=== PATIENT | male | born 1995 | race Caucasian/White ===

== ENCOUNTER 2022-01-13 13:25 | Emergency (ER) | payer BC, SELFPAY ==
[2022-01-13 13:26] VITALS: BP 161/104; PULSE 98; RESP 16; TEMP 36.5; O2SAT 97; BMI 35.7
[2022-01-13 14:22] LABS: Absolute Lymphocyte Count 1.64 X10^3/uL (0.83-4.51); Absolute Neutrophil Count 5.8 X10^3/uL (2.0-7.7); Basophil# 0.07 X10^3/uL; Basophil% 0.8 % (0-1); Eosinophil# 0.21 X10^3/uL; Eosinophils% 2.5 % (0-5); Hematocrit 47.9 % (40-54); Hemoglobin 16.4 g/dL (13.0-16.5); Lymphocyte # 1.64 X10^3/ul (0.83-4.51); Lymphocyte % 19.5 % (19-41); Mean Corp Hgb Conc 34.2 g/dL (32-36); Mean Corpuscular Hgb 29.4 pg (27.0-32.0); Mean Corpuscular Volume 85.8 fL (80-94); Mean Platelet Vol. 9.9 fl (6.2-12.0); Monocyte# 0.66 X10^3/uL; Monocyte% 7.9 % (0-10); NRBC Flagged by Analyzer 0 % (0-5); Neutrophil % 69.1 % (47-70); Platelet Count 314 K/mm3 (150-450); RBC Distribution Width CV 13.9 % (11.6-14.6); RBC Distribution Width SD 44.2 fl (35.1-43.9); Red Blood Count 5.58 M/mm3 (4.6-6.2); White Blood Count 8.4 K/mm3 (4.4-11.0)
--- NOTE | 2022-01-13 14:28 | CT_ITS ---
INDICATION: left sided abed pain EXAMINATION: CT ABDOMEN AND PELVIS WITH CONTRAST - CT Abdomen And Pelvis W/ Contrast Injection TECHNIQUE: Helically acquired images were obtained of the abdomen and pelvis following IV contrast. A radiation dose optimization technique was used for this scan. IV Contrast dosage and agent: 100 mL of [id number]. Oral contrast: None. COMPARISON: None. FINDINGS: LOWER CHEST: Lung bases are clear. No cardiomegaly or pericardial effusion. LIVER: The liver demonstrates homogeneous echogenicity with no evidence of well-defined masses, a 2.7 cm area of for low attenuation suggestive of fatty sparing is visualized in the anterior medial right lobe. No evidence of intrahepatic biliary dilatation is seen. GALLBLADDER AND BILIARY TREE: No calcified gallstones, focal 1.4 cm area of slightly increased attenuation visualized in the neck of the gallbladder , this could represent a noncalcified gallstone. No gallbladder distension or wall edema. No intra- or extrahepatic biliary ductal dilation. PANCREAS: No focal cystic or solid mass. SPLEEN: Normal size without focal cystic or solid mass. ADRENAL GLANDS: No nodules. KIDNEYS AND URETERS: Normal renal size and position. No hydronephrosis. PERITONEUM: No ascites or free air. No other fluid collection. BOWEL: Small type I hiatus hernia is seen. No evidence of acute appendicitis. No stomach or bowel distension. No focal inflammatory change. A focal area of increased attenuation is visualized layering within the proximal duodenum, of unknown clinical significance. Scattered stool visualized in the large bowel. LYMPH NODES: Bilateral inguinal lymphadenopathy is seen. VESSELS: Aorta is non-dilated. URINARY BLADDER: Unremarkable. REPRODUCTIVE ORGANS: No pelvic masses. ABDOMINAL WALL: No discrete abdominal or pelvic wall hernia. BONES: No lytic or blastic abnormality. CT/Abdomen/Pelvis W IV Cont ONLY IMPRESSION: Small type I hiatus hernia and clinical correlation for gastroesophageal reflux disease. Abundance of stool in the large bowel. No evidence of acute abdominal pathology is seen. Electronically Signed: Alejandro Damon MD at 15:41 EDT Reading Location ID and State: [facility] / [place] Tel , Service support ,
--- NOTE | 2022-01-13 14:29 | ED.VIS.GI ---
HPI HPI - GI History of Present Illness Chief Complaint: Abd Pain Informant: patient Abdominal Pain/Flank Pain Onset: Today Context: - (Awoke with discomfort, has gradually worsened throughout the day) Timing: Continuous Quality: Aching Location: LUQ and Left Flank Current Severity: Moderate Maximum Severity: Moderate Worsened by: Nothing; Not Worsened By Food Relieved by: Nothing Nausea/Vomiting/Emesis GI Symptom: Negative for Nausea or Vomiting Diarrhea/Melena/Hematochezia GI Symptom: Negative for Diarrhea, Melena or Hematochezia Associated Symptoms Associated Symptoms: Negative for Dysuria, Frequency, Hematuria or Urgency Narrative Narrative: Patient having worse abdominal pain than he is used to today. He is has had intermittent abdominal pain, was treated as a stomach ulcer, he is not sure what medication he is on but thinks he may be on omeprazole, was a couple months ago and has been better since he has been on that medicine. He ate this morning, it did not seem to make the pain worse. Nonpleuritic. No nausea or vomiting or urinary symptoms. No fevers or chills. No recent cough or shortness of breath. He has not tried anything this morning for it yet. [facility] Medical History Abdominal pain Abdominal pain Home Medications docusate sodium 100 mg capsule (DOK) 100 mg PO BID PRN PRN Constipation ##10 03/05/14 [Rx Last Taken Unknown] hydrocodone-acetaminophen 5-325mg 5mg-325mg 1 - 2 tab PO Q6H PRN PRN Pain ##60 03/05/14 [Rx Last Taken Unknown] promethazine 25 mg tablet 25 mg PO Q4H PRN PRN Nausea ##10 03/05/14 [Rx Last Taken Unknown] dicyclomine 10 mg capsule 20 mg PO Q8H PRN PRN abdominal discomfort #30 CAPSULES 01/13/22 [Rx Last Taken Unknown] Allergy/AdvReac Type Severity Reaction Status Date / Time No Known Allergies Allergy Verified 01/13/22 13:29 Family History no significant family his Social History Smoking Status: Never smoker ROS ROS ED Constitutional Constitutional ED: Denies chills or fever(s) Eyes Eyes: Denies change in vision or diplopia ENT ENT ED: Denies rhinorrhea or sore throat Cardiovascular Cardiovascular: Denies chest pain or palpitations Respiratory/Chest Respiratory/Chest: Denies cough or dyspnea Gastrointestinal Gastrointestinal: Reports abdominal pain; Denies diarrhea, nausea or vomiting Genitourinary Genitourinary ED: Reports flank pain; Denies dysuria or hematuria Musculoskeletal Musculoskeletal: Denies back pain or neck pain Integumentary Denies abscess or rash Neurologic Neurologic: Denies headache(s), paresthesias or weakness Psychiatric Psychiatric: Denies anxiety or suicidal thoughts EXAM Physical Exam Const Vital Signs: 01/13/22 13:26 01/13/22 16:24 Temperature 97.7 F L Temperature Source Temporal Pulse Rate 98 80 Respiratory Rate 16 16 Blood Pressure 161/104 H 145/73 H Blood Pressure Mean 123 97 Pulse Ox 97 97 Oxygen Delivery Method Room Air Room Air Positive well nourished and well developed General Appearance ED: well developed and NAD HEENT Reports moist mucous membranes normocephalic and atraumatic Eyes PERRL and EOMs intact bilaterally Neck full ROM and supple Resp normal respiratory effort and clear to auscultation bilaterally Cardio regular rate, regular rhythm and no murmurs GI non-distended GI Narrative: Tender mildly left upper quadrant, more so in the left lower quadrant, but tender throughout the left side. No guarding or rebound tenderness. No pulsatile mass palpable. Auscultation: normoactive bowel sounds Palpation: soft Back/Spine no CVA tenderness General Back: other FROM Extremity normal to inspection General Extremety ED: Negative for edema, pulses abnormal or tenderness General Extremity: Negative for edema or pulses abnormal Neuro oriented x3, CN's II-XII intact bilaterally and no sensory deficits noted Sensorium / Orientation: awake and alert Motor Exam: strength 5/5 throughout Skin no rashes or lesions noted and no wounds MDM MDM MDM Narrative Medical decision making narrative: Labs unremarkable, patient was CT that, it shows a small hiatal hernia for which she suggest that he is already on some type of acid reducing medication for, in addition to an abundance of stool in the colon which is not necessarily pathologic, however could be related to his pain if he is having colonic spasms and needs to have a bowel movement. Will prescribe him dicyclomine to use as needed, and recommend close outpatient follow-up he is comfortable with that plan. Lab Data Attestation: I reviewed the patient's lab results. Labs: Laboratory Results - last 24 hr 01/13/22 01/13/22 13:50 13:50 WBC 8.4 RBC 5.58 Hgb 16.4 Hct 47.9 MCV 85.8 MCH 29.4 MCHC 34.2 RDW Std Deviation 44.2 H RDW Coeff of Gee 13.9 Plt Count 314 MPV 9.9 Immature Gran % (Auto) 0.200 Neut % (Auto) 69.1 Lymph % (Auto) 19.5 [place] % (Auto) 7.9 Eos % (Auto) 2.5 Baso % (Auto) 0.8 Absolute Neuts (auto) 5.8 Absolute Lymphs (auto) 1.64 Nucleated RBC % 0 Sodium 140 Potassium 3.9 Chloride 107 Carbon Dioxide 28.0 Anion Gap 5 BUN 10 Creatinine 1.01 Estim Creat Clear Calc 109.11 Est GFR (MDRD) Af Amer 116 Est GFR (MDRD) Non-Af 96 BUN/Creatinine Ratio 9.9 L Glucose 103 Calcium 9.4 Radiography Diagnostic Testing: Clinical Impression(s) from Imaging Studies Abdomen/Pelvis CT 01/13/22 14:28 IMPRESSION: Small type I hiatus hernia and clinical correlation for gastroesophageal reflux disease. Abundance of stool in the large bowel. No evidence of acute abdominal pathology is seen. Electronically Signed: Alejandro Damon MD at 15:41 EDT Reading Location ID and State: [facility] / [place] Tel , Service support , Discharge Plan Triage Chief Complaint: Abd Pain ED Provider: Dm Lee Dx/Rx/DC Orders Clinical Impression: Left sided abdominal pain, Hernia, hiatal Instructions: Abdominal Pain, ED Hiatal Hernia Prescriptions: New dicyclomine 10 mg capsule 20 mg PO Q8H PRN PRN (Reason: abdominal discomfort) Qty: 30 0RF No Action hydrocodone-acetaminophen 1 TABLET tablet 1 - 2 tab PO Q6H PRN PRN (Reason: Pain) Qty: 60 1RF promethazine 25 MG tablet 25 mg PO Q4H PRN PRN (Reason: Nausea) Qty: 10 0RF docusate sodium [DOK] 100 MG capsule 100 mg PO BID PRN PRN (Reason: Constipation) Qty: 10 0RF Primary Care Provider: Tuan Chowdhury Referrals: Tuan Chowdhury DO [Primary Care Provider] - 3-5 Days if not improving Disposition Disposition: Home, Self Care
[2022-01-13] MEDS: Mag Hydrox/Al Hydrox/Simeth 30 ML UDC PO (15:07)
[2022-01-13 16:00] LABS: Anion Gap 5 (5-15); BUN 10 mg/dL (7-18); BUN/Creat Ratio 9.9 RATIO (10-20); Calcium,Total 9.4 mg/dL (8.5-10.1); Chloride 107 mmol/L (98-107); Creatinine, Serum 1.01 mg/dL (0.70-1.30); EST Glomerular Filtration Rate 96 mL/min (>60); Est Glom Filt Rate - Afr Amer 116 mL/min (>60); Estimated Creatinine Clearance 109.11 ml/min; Glucose 103 mg/dL (74-106); Potassium 3.9 mmol/L (3.5-5.1); Sodium Level 140 mmol/L (136-145)
[2022-01-13 16:24] VITALS: BP 145/73; PULSE 80; RESP 16; O2SAT 97
[2022-01-13 16:43] VITALS: PULSE 86; RESP 15; O2SAT 98
== END 2022-01-13 16:44 | disposition home or self-care (01) ==
PROVIDERS: Emergency Provider Emergency Medicine; PCP Student in an Organized Health Care Education/Training Program; Visit Provider Emergency Medicine
DX: R10.9 Unspecified abdominal pain (principal); K44.9 Diaphragmatic hernia without obstruction or gangrene
CPT/HCPCS: 74177; 80048; 85025; 99283; J7040; Q9967; A4216

== ENCOUNTER 2022-08-14 05:23 | Emergency (ER) | payer BC, SELFPAY ==
[2022-08-14 05:24] VITALS: BP 171/89; PULSE 78; RESP 15; TEMP 36.6; O2SAT 97; BMI 35.4
--- NOTE | 2022-08-14 05:40 | ED.VIS.GI ---
HPI HPI - GI History of Present Illness Chief Complaint: Abd Pain Informant: patient Narrative Narrative: Patient presents with right upper quadrant pain he is afraid it is his gallbladder. At first the when I asked if he has had this before he said he may have had something back in January. But the more I talk to him I find out he is having pain in the right upper quadrant actually multiple times a day almost every day. He has seen his primary physician for this. They ordered an ultrasound he had an ultrasound on Sunday at [facility]. The pain came back again this morning but was a little bit worse than normal but it is in the same spot. He does not have chest pain or dyspnea. No posterior back pain. No history of kidney stones. No hematuria. He has no prior history of any intra-abdominal surgery. Past medical history includes anxiety and GERD Patient's meds include meds for anxiety depression he does not know the name of them. He also is on what sounds like a PPI. No known allergies No prior intra-abdominal surgeries PFSH PFS Medical History Abdominal pain Abdominal pain Home Medications dicyclomine 10 mg capsule 20 mg PO TIDAC #20 CAPSULES 08/14/22 [Rx Last Taken Unknown] hydrocodone-acetaminophen 5-325mg 5mg-325mg 1 tab PO Q6H PRN PRN Pain 3 days #10 TABLETS 08/14/22 [Rx Last Taken Unknown] hydroxyzine HCl 25 mg tablet mg 08/14/22 [History Last Taken Unknown] pantoprazole 40 mg tablet,delayed release mg PO 08/14/22 [History Last Taken Unknown] sildenafil 50 mg tablet mg 08/14/22 [History Last Taken Unknown] sucralfate 1 gram tablet 08/14/22 [History Last Taken Unknown] trazodone 50 mg tablet mg 08/14/22 [History Last Taken Unknown] Allergy/AdvReac Type Severity Reaction Status Date / Time No Known Allergies Allergy Verified 08/14/22 05:28 Social History Smoking Status: Never smoker ROS ROS ED Constitutional Constitutional ED: Denies fever(s) ENT ENT ED: Denies rhinorrhea or sore throat Cardiovascular Cardiovascular: Denies chest pain or palpitations Respiratory/Chest Respiratory/Chest: Denies cough or dyspnea Gastrointestinal Gastrointestinal: Reports abdominal pain, diarrhea, nausea and vomiting; Denies constipation or melena Genitourinary Genitourinary ED: Denies hematuria Musculoskeletal Musculoskeletal: Denies back pain or myalgias Integumentary Denies rash Neurologic Neurologic: Denies paresthesias or weakness Psychiatric Psychiatric: Reports anxiety Endocrine Endocrinology: Denies polydipsia or polyuria Hematologic/Lymphatic Hematologic/Lymphatic: Denies lymphadenopathy Allergic/Immunologic Allergic/Immunologic ED: Denies urticaria EXAM Physical Exam Narrative Exam Narrative: Patient awake alert sitting on bed. He looks little uncomfortable but not toxic. HEENT shows normal moist mucous membranes Eyes show no icterus Lungs are clear bilaterally. Heart is regular. No tachycardia. Abdomen is soft normal bowel sounds. He does have tenderness primarily in the right upper quadrant. He really is not tender epigastric or other areas. He has slight increased pain with a deep breath/Cook sign but it is just mild. shows no CVA or suprapubic tenderness Extremities show no edema or cords Skin shows no icterus pallor or diaphoresis. Const Vital Signs: 08/14/22 05:24 Temperature 97.9 F Temperature Source Temporal Pulse Rate 78 Respiratory Rate 15 Blood Pressure 171/89 H Blood Pressure Mean 116 Pulse Ox 97 Oxygen Delivery Method Room Air MDM MDM MDM Narrative Medical decision making narrative: We did contact [facility]. They are going to check to see if his ultrasound was read. They are not sure if it has yet been read. Patient CBC shows normal white count hemoglobin and platelets. Patient's electrolytes show minimally low potassium at 3.4 and glucose of 108 otherwise normal. Patient's liver function test are normal Lipase is normal at 229 Patient's recheck. He had originally gotten a little bit better with meds but now the pain is getting worse. All of it is in right upper quadrant. There is no tenderness elsewhere. We have been unable to obtain ultrasound from the other facility. They were not even sure if it was read. I checked again and we have no results. This patient has been having intermittent right upper quadrant pain is getting worse and constant now. I will repeat the ultrasound here. Certainly if it shows an acute abnormality he may need to come in for this. But if the ultrasound shows no acute process I think he would be appropriate for outpatient follow-up. I was able to get the ultrasound done here. It is not showing any stones pericholecystic fluid inflammatory changes etc. I talk with the patient. He has been taking something for acid but he is just taking it occasionally. I explained that he should take this every single day. He can use his pantoprazole or he can use Nexium or Prilosec [id number]. He should follow-up with his private physician. I will also refer him to gastroenterology. I explained this could also be ulcer disease. He may also end up needing an outpatient HIDA scan. I will get him some Bentyl to see if this helps. I will write for a few Vicodin. I did research his online prescribing report that shows no controlled substances at all in the last 2 years. Repeat exam shows really no tenderness. He states he still has some discomfort in the right upper quadrant but it is better and there is no real tenderness or rebound. Bowel sounds are normal. Lab Data Attestation: I reviewed the patient's lab results. Labs: Laboratory Results - last 24 hr 08/14/22 08/14/22 05:49 05:49 WBC 9.9 RBC 5.25 Hgb 15.5 Hct 45.8 MCV 87.2 MCH 29.5 MCHC 33.8 RDW Std Deviation 40.1 RDW Coeff of Gee 12.5 Plt Count 308 MPV 10.3 Immature Gran % (Auto) 0.400 Neut % (Auto) 63.8 Lymph % (Auto) 21.9 [place] % (Auto) 9.0 Eos % (Auto) 4.3 Baso % (Auto) 0.6 Absolute Neuts (auto) 6.3 Absolute Lymphs (auto) 2.17 Nucleated RBC % 0 Sodium 140 Potassium 3.4 L Chloride 104 Carbon Dioxide 28.0 Anion Gap 8 BUN 12 Creatinine 1.01 Estim Creat Clear Calc 119.08 Est GFR (MDRD) Af Amer 115 Est GFR (MDRD) Non-Af 95 BUN/Creatinine Ratio 11.9 Glucose 108 H Calcium 8.8 Total Bilirubin 0.40 AST 19 ALT 25 Alkaline Phosphatase 68 Total Protein 7.0 Albumin 3.8 Globulin 3.2 Albumin/Globulin Ratio 1.2 Lipase 229 Radiography Diagnostic Testing: Clinical Impression(s) from Imaging Studies Gallbladder Ultrasound 08/14/22 06:36 IMPRESSION: Enlarged fatty liver. Electronically Signed: Tuan Finley MD at 7:30 EST , Discharge Plan Triage Chief Complaint: Abd Pain ED Provider: Ziyad Frias Dx/Rx/DC Orders Clinical Impression: Abdominal pain, acute, right upper quadrant, Biliary colic Instructions: ED Abdominal Pain Unkn Cause Male... Prescriptions: New hydrocodone-acetaminophen [hydrocodone-acetaminophen] 5-325 mg tablet 1 tab PO Q6H PRN PRN (Reason: Pain) 3 Days Qty: 10 0RF dicyclomine 10 mg capsule 20 mg PO TIDAC Qty: 20 0RF No Action trazodone 50 mg tablet Label Comments: START WITH A 1/2 TABLET FOR 7 DAYS THEN INCREASE TO 1 TAB AT BEDTIME sildenafil 50 mg tablet sucralfate 1 gram tablet pantoprazole 40 mg tablet,delayed release (DR/EC) PO Label Comments: TAKE 1 TABLET BY MOUTH EVERY DAY BEFORE MEALS FOR 90 DAYS hydroxyzine HCl 25 mg tablet Label Comments: TAKE 1/2 TABLET BY MOUTH EVERY DAY FOR 30 DAYS NEEDED FOR ANXIETY Primary Care Provider: Tuan Chowdhury Referrals: Tuan Chowdhury DO [Primary Care Provider] - As soon as possible Friend,DO Bradley [Med Staff - Active Staff] - As soon as possible Disposition Disposition: Home, Self Care
[2022-08-14] MEDS: Ketorolac 15 MG/ML Vial IV (05:45)
[2022-08-14] MEDS: 0.9% Normal Saline 1,000 ML 1000 ML IV (05:45)
[2022-08-14] MEDS: Ondansetron 4 MG/2 ML Vial IV (05:46)
[2022-08-14 06:07] LABS: Absolute Lymphocyte Count 2.17 X10^3/uL (0.83-4.51); Absolute Neutrophil Count 6.3 X10^3/uL (2.0-7.7); Basophil# 0.06 X10^3/uL; Basophil% 0.6 % (0-1); Eosinophil# 0.43 X10^3/uL; Eosinophils% 4.3 % (0-5); Hematocrit 45.8 % (40-54); Hemoglobin 15.5 g/dL (13.0-16.5); Lymphocyte # 2.17 X10^3/ul (0.83-4.51); Lymphocyte % 21.9 % (19-41); Mean Corp Hgb Conc 33.8 g/dL (32-36); Mean Corpuscular Hgb 29.5 pg (27.0-32.0); Mean Corpuscular Volume 87.2 fL (80-94); Mean Platelet Vol. 10.3 fl (6.2-12.0); Monocyte# 0.89 X10^3/uL; NRBC Flagged by Analyzer 0 % (0-5); Neutrophil # 6.32 X10^3/uL (2.7-7.7); Neutrophil % 63.8 % (47-70); Platelet Count 308 K/mm3 (150-450); RBC Distribution Width CV 12.5 % (11.6-14.6); RBC Distribution Width SD 40.1 fl (35.1-43.9); Red Blood Count 5.25 M/mm3 (4.6-6.2); White Blood Count 9.9 K/mm3 (4.4-11.0)
[2022-08-14 06:27] LABS: ALB/GLOB Ratio 1.2 RATIO (0.9-2.4); AST(SGOT) 19 U/L (15-37); Alanine Aminotransfer ALT/SGPT 25 U/L (16-61); Albumin, Serum 3.8 g/dL (3.2-5.0); Alkaline Phosphatase 68 U/L (45-117); Anion Gap 8 (5-15); BUN 12 mg/dL (7-18); BUN/Creat Ratio 11.9 RATIO (10-20); Calcium,Total 8.8 mg/dL (8.5-10.1); Chloride 104 mmol/L (98-107); Creatinine, Serum 1.01 mg/dL (0.70-1.30); EST Glomerular Filtration Rate 95 mL/min (>60); Est Glom Filt Rate - Afr Amer 115 mL/min (>60); Estimated Creatinine Clearance 119.08 ml/min; Globulin 3.2 g/dL (2.2-4.2); Glucose 108 mg/dL (74-106); Lipase 229 U/L (73-393); Potassium 3.4 mmol/L (3.5-5.1); Sodium Level 140 mmol/L (136-145)
--- NOTE | 2022-08-14 06:36 | US_ITS ---
EXAM: US ABDOMEN LIMITED, RIGHT UPPER QUADRANT CLINICAL INDICATION: pain TECHNIQUE: Real-time ultrasound of the right upper quadrant with image documentation. This report was created using [employer] report generation technology. COMPARISON: None. FINDINGS: LIVER: The liver measures 18.7 cm. Increased echogenicity of the liver. No intrahepatic biliary ductal dilation. GALLBLADDER: Unremarkable. No shadowing gallstone. No gallbladder wall thickening is demonstrated. No pericholecystic fluid. Negative sonographic Cook''s sign. COMMON BILE DUCT: Unremarkable as visualized. The proximal common bile duct is within normal limits for the patient''s age. PANCREAS: Unremarkable as visualized. No focal abnormality is demonstrated in the pancreas. No pancreatic ductal dilatation. RIGHT KIDNEY: Unremarkable. There is no hydronephrosis. No shadowing calculus. No focal lesion or perinephric collection is demonstrated. US/Gallbladder IMPRESSION: Enlarged fatty liver. Electronically Signed: Tuan Finley MD at 7:30 EST ,
[2022-08-14] MEDS: Morphine 4 MG/ML Syringe IV (06:43)
[2022-08-14 08:08] VITALS: BP 149/81; PULSE 69; RESP 16; O2SAT 99
--- NOTE | 2022-08-14 08:18 | ED.RN ---
PATIENT HAS RIDE OUT OF THE FACILITY.
== END 2022-08-14 08:14 | disposition home or self-care (01) ==
PROVIDERS: Emergency Provider Emergency Medicine; PCP Student in an Organized Health Care Education/Training Program; Visit Provider Emergency Medicine
DX: K80.50 Calculus of bile duct without cholangitis or cholecystitis without obstruction (principal); R10.11 Right upper quadrant pain
CPT/HCPCS: 76705; 80053; 83690; 85025; 96361; 96374; 96375; 99282; J7030; A4216; J2405

== ENCOUNTER → 2022-08-30 | Outpatient (CLI) | payer BC, SELFPAY ==
--- NOTE | 2022-08-30 09:23 | NM_ITS ---
CLINICAL: 27-year-old male with history of postprandial epigastric pain. RADIONUCLIDE HEPATOBILIARY SCINTIGRAPHY COMPARISON: Gallbladder ultrasound report 08/14/2022 FINDINGS: Following the intravenous administration of 6.0 mCi of 99m Tc Mebrofenin, hepatobiliary images reveal: 1. Relatively prompt and homogeneous radiopharmaceutical concentration is noted by a normal sized liver. No parenchymal defects are identified. 2. Gallbladder activity is identified at 15 minutes post radiopharmaceutical administration. 3. Small intestinal tract is observed at 45 minutes following tracer injection. 4. Washout of the radiopharmaceutical by the hepatic parenchyma appears qualitatively normal. Cholecystokinin (0.02 ug/kg) was administered intravenously over a 30-minute period. The post CCK gallbladder ejection fraction calculated at 20 minutes following Cholecystokinin administration was noted to be 38.0 % (normal greater than 35%). During 30 minutes of post CCK imaging, there is no scintigraphic evidence of reflux of the radiotracer into the common hepatic duct or refilling of the gallbladder. There is evidence of post CCK duodenal-gastric reflux. NM/Hepatobilliary Img w/Pharm Int IMPRESSION: 1. A gallbladder ejection fraction calculated to be greater than 35% following the administration of Cholecystokinin makes the probability of functional hepatobiliary disease (gallbladder and/or sphincter of Oddi dyskinesia) and/or organic hepatobiliary disease (chronic acalculous cholecystitis and/or cystic duct syndrome) to be low. (Elin Foster et al, Journal of Nuclear Medicine 32:1695, 1991). 2. There is scintigraphic evidence of post cholecystokinin duodenal-gastric reflux. Electronically Signed: Kyle Bhakta, at 23:46 EDT ,
== END | disposition home or self-care (01) ==
LOC: NM 09:22
PROVIDERS: PCP Student in an Organized Health Care Education/Training Program; Referring Provider Nurse Practitioner Adult Health; Visit Provider Nurse Practitioner Adult Health
DX: R10.11 Right upper quadrant pain (principal); K21.9 Gastro-esophageal reflux disease without esophagitis
CPT/HCPCS: 78227; A9537; J2805

== ENCOUNTER 2022-10-12 11:40 | Day surgery (SDC) | payer BC, SELFPAY ==
[2022-10-12] VITALS (7 sets, daily range): BP systolic 118–145; BP diastolic 65–88; PULSE 80–94; RESP 16–18; TEMP 36.3–36.7; O2SAT 92–99; BMI 33.8
[2022-10-12] MEDS: Lactated Ringers 1,000 ML 15 ML IV (12:11)
--- NOTE | 2022-10-12 12:45 | EGD_PTH ---
PATIENT: KELVIN GARCIA LOC: EN U#:[id number] AGE/SX: 27/M ROOM: RE10/12/[address]: Dr. Bradley Arriaga DO : 1995 BED: DIS: 10/12/2022 SPEC #: [id number] RECD: 10/12/22 14:53 STATUS: GLYNN LINDA #: [id number] MAYLIN: 10/12/22 12:[address]: Bradley Arriaga DEPT: SURGICAL PATHOLOGY RECD BY: Tejal Renee ENTERED: 10/13/22 12:32 SP TYPE: EGD BIOPSY OT DR: Dr. Tuan Chowdhury DO Tissues: Esophagus, NOS Procedures: Special Stain Group I Surgery Specimen Level IV GMS Stain (control) HEADER OPERATION: EGD ([facility] [place]) PRE-OP DIAGNOSIS: RUQ pain, GERD TISSUE SUBMITTED: Distal esophagus biopsy MICROSCOPIC DIAGNOSIS Distal esophagus, biopsy: Fragments of squamous mucosa with focal ulceration, acute and chronic inflammation and granulation tissue reaction. Changes consistent with eosinophilic esophagitis. See comment. MIGUEL:wesley 10/16/2022 COMMENT Increased number of eosinophils (>20 per high power field) are noted consistent with eosinophilic esophagitis. Special stain for fungi is negative for organisms; matched control is appropriate. MICROSCOPIC DESCRIPTION Slides are reviewed. GROSS DESCRIPTION Received in fixative is one container labeled with the patient's name and designated distal esophagus biopsy. The specimen consists of multiple irregular fragments of light cervantes soft tissue that in aggregate measure 0.6 x 0.2 x 0.1 cm. The specimen is totally submitted in one cassette. / MIGUEL:wesley 10/13/2022 TC:2 [facility]: [id number]
--- NOTE | 2022-10-12 12:57 | PCM.HP.BLA ---
History and Physical Date of Admission: 10/12/22 27 M who presents to the office today for abdominal pain. RUQ pain started 3 wks ago after eating [employer], then worse on 08/14/22, had nausea and vomiting with blood-tinged emesis, taking ondansetron which helps with n/v but still has RUQ pain. Pain is worse with larger meals, worse with greasy or fried foods. 2 ED visits on 08/14/22 for this. 08/14/22 ED at [facility]--RUQ pain; normal liver function tests, normal lipase, K+3.3, normal cbc; RUQ US: enlarged (18.7 cm) fatty liver, normal gallbladder 08/14/22 ED at [facility]--RUQ pain and blood tinged emesis; cbc/cmp/lipase unremarkable; RUQ US normal GB; CT abd neg Long hx acid reflux. Choking on food for the past 3 mos. Wakes up choking on acid. Taking pantoprazole 40 mg daily for at least 6 mos. Normal BMs, no diarrhea or constipation, no melena or hematochezia. No early satiety. 01/2022 CT/Abdomen/Pelvis W IV Cont ONLY IMPRESSION: Small type I hiatus hernia and clinical correlation for gastroesophageal reflux disease. Abundance of stool in the large bowel. No evidence of acute abdominal pathology is seen. ? ROS Const Constitutional: Positive for fatigue and weight change ENT ENT: No difficulty swallowing Gastro GI: No abdominal pain, belching, bloating, change in bowel habits, change in stool character, coffee ground emesis, constipation, cramping, diarrhea, heartburn, difficulty swallowing, feeling full early, excessive flatus, incontinent of stools, Vomiting blood/hematemesis, Blood in stool, loose stools, Black,tarry stools, nausea/dyspepsia, pain with swallowing, vomiting or other Musc Musculoskeletal: Positive for joint pain, back pain, muscle cramps and muscle weakness Skin Skin: No yellowing of the eye or itchy eyes Psych Psychiatric: Positive for anxiety and No depression Endo Endocrine: Positive for fatigue and weight change Aller/Imm Allergy/Immunologic: No itchy eyes Hayder/Lymp Hematologic/Lymphatic: No easy bleeding or easy bruising Exam Const General: cooperative, healthy appearing and no acute distress Nutritional Appearance: overweight Orientation: alert, awake and oriented x3 HENMT Head: normal to inspection Eyes Sclera: sclerae normal Resp Effort & Inspection: normal respiratory effort GI Inspection: normal to inspection Palpation: soft, no hepatosplenomegaly, no masses and tender in the epigastrum and in the RUQ Skin General: no rashes or lesions noted Quality Reporting Tobacco Screening ([facility] 138) Smoking Status: Never smoker Assessment and Plan Assessment and Plan (1) RUQ pain: ?Status:?Acute ?Plan: 27 yr old male with RUQ/epigastric pain which radiates to back, worse with greasy food, no diarrhea. He has chronic acid reflux, worse even on PPI, with new dysphagia. RUQ US and CT abd done at 2 EDs this week are unremarkable, as are labs. Will get HIDA scan and EGD. Rx sucralfate. Continue ondansetron prn. (2) GERD (gastroesophageal reflux disease): ?Status:?Chronic ?Plan: see above ? ? ? Orders: Orders Hepatobilliary Img w/Pharm Int Today K21.9 - Gastro-esophageal reflux disease without esophagitis, R10.11 - Right upper quadrant pain ? Medications: Changed From sucralfate ? To sucralfate 1 g? PO QACHS 120 tabs 0RF I have examined the patient and the H&P has been reviewed. There are no clinical changes since date of exam.
--- NOTE | 2022-10-12 13:20 | OP.EGD_ITS ---
Patient Name: José Miguel Jennings Procedure Date: 10/12/2022 1:00 PM Date of : 1995 Age: 27 Procedure: Upper GI endoscopy Indications: Heartburn Providers: Bradley Arriaga DO Referring MD: Tuan Chowdhury Do Medicines: Monitored Anesthesia Care Complications: No immediate complications. Procedure: Pre-Anesthesia Assessment: - Prior to the procedure, a History and Physical was performed, and patient medications and allergies were reviewed. The patient is competent. The risks and benefits of the procedure and the sedation options and risks were discussed with the patient. All questions were answered and informed consent was obtained. Patient identification and proposed procedure were verified by the physician in the pre-procedure area. Mental Status Examination: alert and oriented. Airway Examination: normal oropharyngeal airway and neck mobility. Respiratory Examination: clear to auscultation. CV Examination: normal. Prophylactic Antibiotics: The patient does not require prophylactic antibiotics. Prior Anticoagulants: The patient has taken no previous anticoagulant or antiplatelet agents. ASA Grade Assessment: II - A patient with mild systemic disease. After reviewing the risks and benefits, the patient was deemed in satisfactory condition to undergo the procedure. The anesthesia plan was to use monitored anesthesia care (MAC). Immediately prior to administration of medications, the patient was re-assessed for adequacy to receive sedatives. The heart rate, respiratory rate, oxygen saturations, blood pressure, adequacy of pulmonary ventilation, and response to care were monitored throughout the procedure. The physical status of the patient was re-assessed after the procedure. After obtaining informed consent, the endoscope was passed under direct vision. Throughout the procedure, the patient's blood pressure, pulse, and oxygen saturations were monitored continuously. The Endoscope was introduced through the mouth, and advanced to the second part of duodenum. The upper GI endoscopy was accomplished without difficulty. The patient tolerated the procedure well. Scope In: 1:08:52 PM Scope Out: 1:12:54 PM Total Procedure Duration Time 0 hours 4 minutes 2 seconds Findings: LA Grade D (one or more mucosal breaks involving at least 75% of esophageal circumference) esophagitis with bleeding was found 35 to 39 cm from the incisors. Biopsies were taken with a cold forceps for histology. Verification of patient identification for the specimen was done. Estimated blood loss was minimal. A medium-sized hiatal hernia was present. The exam of the stomach was otherwise normal. The first portion of the duodenum was normal. Impression: - LA Grade D reflux esophagitis. Biopsied. - Medium-sized hiatal hernia. - Normal first portion of the duodenum. Recommendation: - Discharge patient to home. - Resume previous diet. - Use Protonix (pantoprazole) 40 mg PO BID. - Continue present medications. Procedure Code(s): --- Professional --- 57468, Esophagogastroduodenoscopy, flexible, transoral; with biopsy, single or multiple CPT copyright 2017 [employer]. All rights reserved. The codes documented in this report are preliminary and upon yarn hauler review may be revised to meet current compliance requirements. Bradley Arriaga DO 10/12/2022 1:20:01 PM This report has been signed electronically. Number of Addenda: 0 Note Initiated On: 10/12/2022 1:00 PM
--- NOTE | 2022-10-12 13:20 | OP.CCLET_ITS ---
10/12/2022 Tuan Chowdhury Do Re : Upper GI endoscopy procedure for José Miguel Jennings Dear Luciana This procedure was performed on October. My impressions and recommendations are as follows: Impressions : - LA Grade D reflux esophagitis. Biopsied. - Medium-sized hiatal hernia. - Normal first portion of the duodenum. Recommendations : - Discharge patient to home. - Resume previous diet. - Use Protonix (pantoprazole) 40 mg PO BID. - Continue present medications. My findings are described in the full procedure note, which is enclosed. If I can be of further assistance, please feel free to contact me at . Sincerely, Bradley Arriaga, 10/12/2022 1:20:01 PM This report has been signed electronically.
== END 2022-10-12 14:15 | disposition home or self-care (01) ==
LOC: EN 11:42 → AC 11:43
PROVIDERS: PCP Student in an Organized Health Care Education/Training Program; Referring Provider Student in an Organized Health Care Education/Training Program; Visit Provider Internal Medicine Gastroenterology
PROC: 0DJ08ZZ Inspection of Upper Intestinal Tract, Via Natural or Artificial Opening Endoscopic (ICD-10-PCS; CPT 43235; principal; 2022-10-12 12:40)
DX: K21.00 Gastro-esophageal reflux disease with esophagitis, without bleeding (principal); K44.9 Diaphragmatic hernia without obstruction or gangrene; R10.11 Right upper quadrant pain; R13.10 Dysphagia, unspecified
CPT/HCPCS: 43239; 88305; 88312; J7120

== ENCOUNTER → 2022-10-26 | Outpatient (CLI) | payer BC, SELFPAY ==
[2022-10-26 16:10] LABS: Absolute Lymphocyte Count 2.23 X10^3/uL (0.83-4.51); Absolute Neutrophil Count 4.8 X10^3/uL (2.0-7.7); Basophil# 0.06 X10^3/uL; Basophil% 0.7 % (0-1); Eosinophil# 0.38 X10^3/uL; Eosinophils% 4.5 % (0-5); Hematocrit 49.8 % (40-54); Hemoglobin 16.5 g/dL (13.0-16.5); Lymphocyte # 2.23 X10^3/ul (0.83-4.51); Lymphocyte % 26.6 % (19-41); Mean Corp Hgb Conc 33.1 g/dL (32-36); Mean Corpuscular Hgb 29.2 pg (27.0-32.0); Mean Corpuscular Volume 88.1 fL (80-94); Mean Platelet Vol. 10.1 fl (6.2-12.0); Monocyte% 10.7 % (0-10); NRBC Flagged by Analyzer 0 % (0-5); Neutrophil # 4.79 X10^3/uL (2.7-7.7); Neutrophil % 57.3 % (47-70); Platelet Count 287 K/mm3 (150-450); RBC Distribution Width CV 12.3 % (11.6-14.6); RBC Distribution Width SD 39.9 fl (35.1-43.9); Red Blood Count 5.65 M/mm3 (4.6-6.2); White Blood Count 8.4 K/mm3 (4.4-11.0)
[2022-10-26 16:38] LABS: Erythrocyte Sedimentation Rate 4 mm/hr (0-20)
[2022-10-26 16:58] LABS: ALB/GLOB Ratio 1.1 RATIO (0.9-2.4); AST(SGOT) 24 U/L (15-37); Alanine Aminotransfer ALT/SGPT 33 U/L (16-61); Albumin, Serum 3.7 g/dL (3.2-5.0); Alkaline Phosphatase 58 U/L (45-117); Anion Gap 6 (5-15); BUN 14 mg/dL (7-18); BUN/Creat Ratio 15.4 RATIO (10-20); CRP < 2.90 mg/L (0.0-3.0); Calcium,Total 9.2 mg/dL (8.5-10.1); Chloride 108 mmol/L (98-107); Creatinine, Serum 0.91 mg/dL (0.70-1.30); EST Glomerular Filtration Rate 108 mL/min (>60); Est Glom Filt Rate - Afr Amer 130 mL/min (>60); Globulin 3.5 g/dL (2.2-4.2); Glucose 79 mg/dL (74-106); Potassium 3.8 mmol/L (3.5-5.1); Protein, Total 7.2 g/dL (6.4-8.2); Sodium Level 140 mmol/L (136-145)
[2022-10-30 15:08] LABS: Endomysial Antibody IgA Negative (Negative); Immunoglobulin A 247 mg/dL (90-386); t-Transglutaminase IgA <2 U/mL (0-3)
[2022-11-01 20:08] LABS: Cytoplasmic Ab (C-ANCA) <1:20 titer (Neg:<1:20); Immunoglobulin A 221 mg/dL (90-386); Immunoglobulin E 77 IU/mL (6-495); Immunoglobulin G 950 mg/dL (603-1613); Immunoglobulin M 77 mg/dL (20-172); Perinuclear Ab (P-ANCA) <1:20 titer (Neg:<1:20)
[2022-11-02 14:09] LABS: Anti-Centromere B Ab <0.2 AI (0.0-0.9); Anti-Chromatin 0.2 AI (0.0-0.9); Anti-Jo <0.2 AI (0.0-0.9); Anti-Scleroderma-70 AB <0.2 AI (0.0-0.9); Anti-dsDNA Ab 1 IU/mL (0-9); Beef <0.10 kU/L (Class 0); Chocolate <0.10 kU/L (Class 0); Corn <0.10 kU/L (Class 0); Milk (Cow) 0.32 kU/L (Class I); Peanut 0.19 kU/L (Class 0/I); Pork <0.10 kU/L (Class 0); RNP Ab 0.5 AI (0.0-0.9); SJOGREN'S Anti-SS-A test < 0.2 AI (0.0-0.9); SJOGREN'S Anti-SS-B test < 0.2 AI (0.0-0.9); Smith Ab 0.2 AI (0.0-0.9); Soybean <0.10 kU/L (Class 0); Wheat 0.52 kU/L (Class I)
== END | disposition home or self-care (01) ==
LOC: LAB 15:25
PROVIDERS: PCP Student in an Organized Health Care Education/Training Program; Referring Provider Nurse Practitioner Adult Health; Visit Provider Nurse Practitioner Adult Health
DX: R10.11 Right upper quadrant pain (principal); K21.9 Gastro-esophageal reflux disease without esophagitis; K20.0 Eosinophilic esophagitis
CPT/HCPCS: 36415; 80053; 82784; 82785; 83516; 85025; 85652; 86003; 86005; 86140; 86225; 86235; 86255; 86256

== ENCOUNTER → 2023-09-13 | Outpatient (CLI) | payer SELFPAY ==
[2023-09-13 17:07] LABS: Erythrocyte Sedimentation Rate 4 mm/hr (0-20)
[2023-09-13 17:42] LABS: Free T3 3.4 pg/mL (2.18-3.98); T4 Free Direct 0.76 ng/dL (0.76-1.46); Thyroid Stim Hormone (TSH) 0.62 uIU/mL (0.358-3.74)
[2023-09-17 09:07] LABS: Anti-Centromere B Ab <0.2 AI (0.0-0.9); Anti-Chromatin <0.2 AI (0.0-0.9); Anti-Jo <0.2 AI (0.0-0.9); Anti-Scleroderma-70 AB <0.2 AI (0.0-0.9); Anti-dsDNA Ab 1 IU/mL (0-9); RNP Ab 0.5 AI (0.0-0.9); SJOGREN'S Anti-SS-A test < 0.2 AI (0.0-0.9); SJOGREN'S Anti-SS-B test 0.2 AI (0.0-0.9); Smith Ab <0.2 AI (0.0-0.9)
[2023-09-18 16:09] LABS: ACCA 94 units (0-90); ALCA 121 units (0-60); AMCA 141 units (0-100); Albumin 3.9 g/dL (2.9-4.4); Alpha-1-Globulins 0.2 g/dL (0.0-0.4); Alpha-2-Globulins 0.8 g/dL (0.4-1.0); Chromogranin A 34.6 ng/mL (0.0-101.8); Cytoplasmic Ab (C-ANCA) <1:20 titer (Neg:<1:20); Gamma Globulin 1.2 g/dL (0.4-1.8); Gastrin, Serum 14 pg/mL (0-115); IgG, Quant 1087 mg/dL (603-1613); Immunoglobulin A 285 mg/dL (90-386); Immunoglobulin G, Subclass 1 530 mg/dL (248-810); Immunoglobulin G, Subclass 2 388 mg/dL (130-555); Immunoglobulin G, Subclass 3 110 mg/dL (15-102); Immunoglobulin G, Subclass 4 124 mg/dL (2-96); Immunoglobulin M 95 mg/dL (20-172); PROEL- TOTAL PROTEIN 7.3 g/dL (6.0-8.5); Perinuclear Ab (P-ANCA) <1:20 titer (Neg:<1:20); gASCA 61 units (0-50)
== END | disposition home or self-care (01) ==
LOC: LAB 16:30
PROVIDERS: PCP Student in an Organized Health Care Education/Training Program; Referring Provider Internal Medicine Gastroenterology; Visit Provider Internal Medicine Gastroenterology
DX: K20.0 Eosinophilic esophagitis (principal); R10.11 Right upper quadrant pain; K21.9 Gastro-esophageal reflux disease without esophagitis
CPT/HCPCS: 36415; 82784; 82787; 82941; 83516; 84165; 84439; 84443; 84481; 85652; 86036; 86140; 86225; 86235; 86256; 86316; 86334; 86671

== ENCOUNTER → 2023-10-29 | Outpatient (CLI) | payer SELFPAY ==
--- NOTE | 2023-10-29 10:10 | MRI_ITS ---
EXAM: MR ABDOMEN AND PELVIS WITHOUT AND WITH INTRAVENOUS CONTRAST CLINICAL INDICATION: R19.7 - Diarrhea, unspecified TECHNIQUE: Multiplanar and multisequence MR images of the abdomen and pelvis without and with intravenous contrast. Magnetic field strength 1.5 T. CONTRAST: 23 cc of Clariscan IV. Water for oral contrast. COMPARISON: CT scan of the abdomen and pelvis 01/13/2022. FINDINGS: LOWER THORAX: Unremarkable. No pleural effusion. ABDOMEN: LIVER: Unremarkable. Normal morphology. No focal mass. GALLBLADDER AND BILE DUCTS: Low signal intensity material layering in the gallbladder may be due to stones or sludge. No gallbladder distention or wall edema. No intra- or extrahepatic biliary ductal dilation. PANCREAS: Unremarkable. No focal cystic or solid mass. SPLEEN: Unremarkable. Normal size without focal cystic or solid mass. ADRENALS: Unremarkable. No nodules. KIDNEYS AND URETERS: Unremarkable. Normal renal size and position. No hydronephrosis. PELVIS: APPENDIX: No evidence of acute appendicitis. BLADDER: Unremarkable. PROSTATE: Unremarkable as visualized. No hypertrophy. No discrete nodule or mass. SEMINAL VESICLES: Unremarkable as visualized. No nodule or cyst. ABDOMEN and PELVIS: INTRAPERITONEAL SPACE: Unremarkable. No ascites or other fluid collection. VASCULATURE: Unremarkable. Abdominal aorta is non-dilated. LYMPH NODES: No enlarged lymph nodes. MRI/Enterography Abd/Pel IMPRESSION: 1. Low signal intensity material layering in the gallbladder may be due to stones or sludge. No signs of acute cholecystitis. 2. Normal bowel. Electronically Signed: Tuan Finley MD at 22:45 EDT ,
[2023-10-29 10:21] VITALS: BP 133/76; PULSE 83; RESP 18; O2SAT 98; BMI 34.8
[2023-10-29] MEDS: 0.9% Saline Lock 10 ML Syringe IV (10:34)
[2023-10-29] MEDS: Glucagon 1 MG/ML Syringe IV (11:40)
[2023-10-29 11:55] VITALS: BP 158/81; PULSE 75; RESP 18; O2SAT 97
== END | disposition home or self-care (01) ==
PROVIDERS: PCP Student in an Organized Health Care Education/Training Program; Referring Provider Internal Medicine Gastroenterology; Visit Provider Internal Medicine Gastroenterology
DX: R19.7 Diarrhea, unspecified (principal); R10.9 Unspecified abdominal pain
CPT/HCPCS: 74183; 96374; A9575; A4216; J1610

== ENCOUNTER → 2024-02-12 | Outpatient (CLI) | payer SELFPAY ==
[2024-02-14 20:08] LABS: QNTFERON TB Mitogen Value > 10.00 IU/mL (.); QNTFERON TB Nil Value 0 IU/mL (.); QNTFERON TB1+ Ag Value 0 IU/mL (.); QNTFERON TB2+ Ag Value 0 IU/mL (.); QNTIFERON TB Positive Criteria Negative (Negative)
== END | disposition home or self-care (01) ==
PROVIDERS: PCP Student in an Organized Health Care Education/Training Program; Referring Provider Internal Medicine Gastroenterology; Visit Provider Internal Medicine Gastroenterology
DX: K20.0 Eosinophilic esophagitis (principal)
CPT/HCPCS: 36415; 86480

== ENCOUNTER → 2024-02-18 | Outpatient (CLI) | payer SELFPAY ==
[2024-02-21 15:08] LABS: Pancreatic Elastase, Fecal > 800 (>200)
[2024-02-28 21:07] LABS: Calprotectin, Stool 48 ug/g (0-120); Fats, Neutral Normal (.); Fats, Total Increased (.)
== END | disposition home or self-care (01) ==
LOC: LAB 13:24 → LABSPEC 13:25
PROVIDERS: PCP Student in an Organized Health Care Education/Training Program; Referring Provider Internal Medicine Gastroenterology; Visit Provider Internal Medicine Gastroenterology
DX: R19.7 Diarrhea, unspecified (principal); K20.0 Eosinophilic esophagitis; R10.11 Right upper quadrant pain; K21.9 Gastro-esophageal reflux disease without esophagitis; K58.0 Irritable bowel syndrome with diarrhea
CPT/HCPCS: 82274; 82653; 82705; 83630; 83993; 87177; 87209; 87329; 87493; 87506

== ENCOUNTER 2024-03-11 10:31 | Day surgery (SDC) | payer OTHER, SELFPAY ==
[2024-03-11] VITALS (10 sets, daily range): BP systolic 107–130; BP diastolic 52–73; PULSE 57–77; RESP 16–18; TEMP 36.3–36.8; O2SAT 85–98; BMI 31.8
--- NOTE | 2024-03-11 | IMM_PTH ---
PATIENT: KELVIN GARCIA LOC: EN U#:[id number] AGE/SX: 29/M ROOM: RE03/11/[address]: Dr. Bradley Arriaga DO : 1995 BED: DIS: 03/11/2024 SPEC #: [id number] RECD: 03/13/24 10:52 STATUS: GLYNN REQ #: [id number] MAYLIN: 03/11/24 00:[address]: Bradley Arriaga DEPT: IMMUNOHISTOCHEMISTRY RECD BY: Mikhail Cedeño ENTERED: 03/13/24 10:53 SP TYPE: IMMUNO OTHR DR: Dr. Tuan Chowdhury DO Tissues: A - Colon, NOS Procedures: BCL-2 (add) CD20 (add) CD3 (add) CD43 (add) CD45 (add) CD5 (add) CD79A (add) Pankeratin (initial) PHYSICIAN & INSTITUTION [place] [id number] SPECIMEN INFORMATION: Tissue Source: A- Terminal ileum biopsy Clinical Info: Eosinophilic esophagitis, GERD, right upper quadrant pain, diarrhea Specimen Number: [id number] CPT code: 03668,06104y2 METHODOLOGY: Deparaffinized sections of prefer/formalin-fixed tissue or PAP/DQ stained slides are incubated with monoclonal/polyclonal antibodies/oligonucleotide probes. Localization is made via biotin free immunoperoxidase method. Appropriate controls are performed and reacted as expected. Results on target cell population are indicated in the following table: RESULTS: ANTIBODY / CLONE RESULT Block A AE1-3 (AE1/AE3/PCK26) negative CD3 (PS1) positive CD5 (SP10) positive CD20 (L26) positive CD43 (L60) positive CD45 (RP2/18) positive CD79a (11E3) positive BCL-2 (bcl-2/100/D5) negative ( in germinal center ) These tests were developed and their performance characteristics determined by [facility]. They may not have been cleared or approved by the U.S. Food and Drug Administration. The FDA has determined that such clearance or approval is not necessary. The above immunohistochemical/dualISH markers are ordered by Dr. Marti Ray and reviewed by the Pathologist. INTERPRETATION: A. Terminal ileum, biopsy: Prominent benign lymphoid aggregates. 03/14/2024
[2024-03-11] MEDS: Lactated Ringers 1,000 ML 15 ML IV (10:45)
--- NOTE | 2024-03-11 11:25 | PRE.ANES_ITS ---
ASA Classification* ASA Classification ASA Classification: 2 Assessment & Plan Anesthesia* Anesthesia Assessment Anesthesia Assessment: Discussed sedation and/or anesthesia options, risks, benefits, and alternatives with patient/parents/legal guardian/POA. Questions invited. The patient/parents/legal guardian/POA seems to understand and agrees to proceed with anesthesia plan. Reviewed the physical assessment, medical history, allergy history and patient home medications list prior to surgery/procedure/anesthetic and documented any changes. Performed airway and anesthesia risk assessments. Anesthesia Type Anesthesia Type: MAC History Source History Obtained from:: Patient and Chart Anesthesia Focused Assessment* Temperature: 98.3 F Pulse Rate: 77 Blood Pressure: 130/73 Respiratory Rate: 18 Pulse Ox: 98 Oxygen Delivery Method: Room Air Airway Assessment Mouth opens: >3 cm Mallampati Score: I Teeth Condition: Chipped/Broken (Patient has bonded teeth at #8 and 9.) Neck Range of motion (ROM): Full ROM Focused Labs Anesthesia Preop lab: CBC WBC 8.4 K/mm3 (4.4-11.0) 10/26/22 15:27 RBC 5.65 M/mm3 (4.6-6.2) 10/26/22 15:27 Hgb 16.5 g/dL (13.0-16.5) 10/26/22 15:27 Hct 49.8 % (40-54) 10/26/22 15:27 Plt Count 287 K/mm3 (150-450) 10/26/22 15:27 CHEMISTRY Potassium 3.8 mmol/L (3.5-5.1) 10/26/22 15:27 Sodium 140 mmol/L (136-145) 10/26/22 15:27 BUN 14 mg/dL (7-18) 10/26/22 15:27 Creatinine 0.91 mg/dL (0.70-1.30) 10/26/22 15:27 Glucose 79 mg/dL (74-106) 10/26/22 15:27 TSH 0.62 uIU/mL (0.358-3.74) 09/13/23 16:33 COAG Pre-Assessment Diagnosis/Proposed Procedure Planned Operative Procedure(s): COLONOSCOPY Anesthesia History 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 When Was Last Pacemaker Check QUESTION #4 FULL TEXT: You/Your Family Experience fever (hyperthermia) with Anesthesia Last Oral Intake Last Oral intake: Last Oral Intake NPO since 00:00 03/11/24 11:03 Meds taken in AM with sips of No 03/11/24 11:03 water? Meds patient instructed to take am of surgery Any additional information?: Yes NPO since: 08:00 (Patient finished prep at 8:00AM) PONV PONV - temporary staff accountant: PONV - temporary staff accountant Female No 03/10/24 13:39 HX of Motion Sickness No 03/10/24 13:39 HX of N/V After Surgery No 03/10/24 13:39 Non-Smoker No 03/10/24 13:39 Duration of Surgery greater No 03/10/24 13:39 than 60 minutes Number of Risk Factors PONV Score Height & Weight Height & Weight: Anesthesia: Height & Weight Height 5 ft 11 in 03/11/24 11:03 Weight: 103.6 kg 03/11/24 11:03 Body Mass Index (BMI) 31.8 03/11/24 11:03 Respiratory Assessment Respiratory Assessment - temporary staff accountant: Respiratory Tract Infection Hx - temporary staff accountant Hx Respiratory Tract Infection No 03/10/24 13:39 STOP Sleep Apnea STOP Sleep Apnea - temporary staff accountant: STOP Sleep Apnea - temporary staff accountant Hx Hypertension No 03/10/24 13:39 Hx Sleep Apnea No 03/10/24 13:39 CPAP No 03/10/24 13:39 BIPAP No 03/10/24 13:39 Do you snore loudly (louder No 03/10/24 13:39 than talking or can be heard Do you often feel tired/ No 03/10/24 13:39 fatigued/ sleepy during daytime? Has anyone observed you stop No 03/10/24 13:39 breathing during sleep? STOP Results Negative 03/10/24 13:39 QUESTION #5 FULL TEXT : Do you snore loudly (louder than talking or can be heard through closed doors)? Tobacco Use History Tobacco Use History - temporary staff accountant: Tobacco Use History - temporary staff accountant Tobacco Use Smoking Status Current every day smoker 03/10/24 13:39 Hx Tobacco Use Yes 03/10/24 13:39 Years Smoking Packs Smoked per Day Smoking Cessation Date was within the last 15 years Hx Smoking Cessation Date Hx Smoking Cessation Counseling Any additional information?: Yes Tobacco Use: Chew (Patient to chews tobacco. 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 Specify any problems Hx of Preganancy in last 3 N/A 03/10/24 13:39 Months Nurse Filling Out Transfusion VCHRISTIN 03/10/24 13:39 & Questions: Date: 03/10/24 03/10/24 13:39 Time: 13:40 03/10/24 13:39 Patient unable to answer at this time (ie. confused, unrespo /Reproduction History /Reproductive History - temporary staff accountant: /Reproductive Hx- temporary staff accountant Hx Now Gestational Age (in weeks): EDC: Hx Hx Para Hx Section SAB Active Medications Active Medications: Current Medications Generic Name Dose Route Start Last Admin Trade Name Catrachitoq PRN Reason Stop Dose Admin Lactated Ringer's 1,000 mls @ 15 mls/hr 03/11/24 10:45 03/11/24 10:45 IV 15 mls/hr .Q48H EARNEST Administration PFSH Medical History Anxiety Migraine headache History of hiatal hernia Gastric reflux Chewing tobacco use Abdominal pain Abdominal pain Home Medications ?Medication ?Instructions ?Recorded ?Last Taken ?Type trazodone 50 mg tablet 50 mg PO QHS 08/14/22 03/06/24 History dupilumab 300 mg/2 mL subcutaneous 300 mg (2 mL) subcut QWEEK EOE #8 10/26/22 03/07/24 Rx pen injector (DupixTripbirds) mL budesonide 3 mg 9 mg (3 x 3 mg) PO DAILY #90 ea 02/18/24 03/08/24 Rx capsule,delayed,extended release pantoprazole 40 mg tablet,delayed 40 mg PO PRN 03/10/24 Unknown History release ustekinumab IV 03/10/24 Unknown History Allergy/AdvReac Type Severity Reaction Status Date / Time No Known Allergies Allergy Verified 03/10/24 13:35 Surgical History History of esophagogastroduodenoscopy (EGD) History of shoulder surgery Hx of tonsillectomy Social History Smoking Status: Current every day smoker tobacco type: smokeless tobacco alcohol intake: never substance use type: does not use Review of Systems (Anesthesia) ROS Narrative System reviewed and no additional complaints, except as documented.
--- NOTE | 2024-03-11 12:00 | COLBX_PTH ---
PATIENT: KELVIN GARCIA LOC: EN U#:[id number] AGE/SX: 29/M ROOM: RE03/11/[address]: Dr. Bradley Arriaga DO : 1995 BED: DIS: 03/11/2024 SPEC #: [id number] RECD: 03/11/24 18:14 STATUS: GLYNN LINDA #: [id number] MAYLIN: 03/11/24 12:[address]: Bradley Arriaga DEPT: SURGICAL PATHOLOGY RECD BY: Tejas Goncalves ENTERED: 03/12/24 10:03 SP TYPE: COLON BX OTHR DR: Dr. Tuan Chowdhury DO Tissues: A - Ileum, NOS B - COLON BIOPSY Procedures: Surgery Specimen Level IV HEADER OPERATION: Colonoscopy with biopsy PRE-OP DIAGNOSIS: Eosinophilic esophagitis, GERD, right upper quadrant pain, diarrhea TISSUE SUBMITTED: A- Terminal ileum biopsies, B- Random colon biopsies MICROSCOPIC DIAGNOSIS A. Terminal ileum, biopsy: Benign lymphoid aggregates. See comment. B. Colon, random biopsy: No pathologic change. AM. 03/13/2024 COMMENT A. Immunohistochemistry ([id number]) supports the above diagnosis. MICROSCOPIC DESCRIPTION Slides are reviewed. GROSS DESCRIPTION A. Received in fixative is one container labeled with the patient's name and designated Terminal ileum biopsy. The specimen consists of multiple irregular fragments of light cervantes soft tissue that in aggregate measure 1.0 x 0.5 x 0.1 cm. The specimen is totally submitted in one cassette. B. Received in fixative is one container labeled with the patient's name and designated Random colon biopsy. The specimen consists of multiple irregular fragments of light cervantes soft tissue that in aggregate measure 1.5 x 0.5 x 0.1 cm. The specimen is totally submitted in one cassette. 03/12/2024 TC:5 CPT:85714i2
--- NOTE | 2024-03-11 12:20 | HP.PCM_ITS ---
History and Physical Date of Admission: 03/11/24 HPI Details: KELVIN GARCIA, is a 28 M who presents to the office today for follow up. 10/2022 EGD revealed LA Grade D reflux esophagitis and EOE. Brother has EOE. HIDA showed bile reflux, no relief with colestipol. Gallbladder EF 38%, with normal >35%. Postprandial RUQ pain with nausea and vomiting began in August. Long hx acid reflux. Choking on food for the past 5 mos. Wakes up choking on acid. Taking pantoprazole 40 mg daily for at least 8 mos. Normal BMs, no diarrhea or constipation, no melena or hematochezia. No early satiety. 08/14/22 ED at [facility]--RUQ pain; normal liver function tests, normal lipase, K+3.3, normal cbc; RUQ US: enlarged (18.7 cm) fatty liver, normal gallbladder 08/14/22 ED at [facility]--RUQ pain and blood tinged emesis; cbc/cmp/lipase unremarkable; RUQ US normal GB; CT abd neg OV 4.4.24- Pt here for follow up. Has had issues with insurance. Continues to have heartburn, trouble swallowing and regurgitation. Will have choking when eating. Wakes up in the night with reflux. Has vomited blood before. Has also been having urgent postprandial diarrhea and abdominal pain. Sees blood in stool. OV 7.5.24 pt reports that he is feeling better overall since starting the Dupixent. Pt reports feeling like he has to throw up with certain foods that he eats, but will drink some water and then the feeling goes away. Pt reports a formed bm every 3-4 hours. Continues with budesonide, colestipol, and dupixent; reports he has not needed to use the pantoprazole. Exam Const General: cooperative and comfortable Orientation: alert, awake and oriented x3 Assessment and Plan Assessment and Plan (1) Eosinophilic esophagitis: Status: Chronic Plan: Eosinophilic esophagitis. He does not have any esophageal dysphagia. He is not having chest pain. He is not having nausea or vomiting. We started him on Dupixent therapy for his refractory EOE and multiple allergies that is affecting his upper GI tract. He is doing very well with that. He is having no breakthrough reflux. He is not having any esophageal dysphagia. He did not have any eosinophilic asthma or eosinophilic dermatitis or any other allergic conditions that would be treated Dupixent. Will continue current therapy. (2) GERD (gastroesophageal reflux disease): Status: Chronic Plan: He is not having any gastroesophageal reflux. (3) RUQ pain: Status: Chronic Plan: He really onlly has pain after eating greasy food, his gallbladder EF was 38% so technically normal but low normal. (4) Diarrhea: Status: Acute Plan: we started him on colestipol 2 g p.o. twice daily. With his mother having Crohn's disease requiring Stelara therapy we ordered MRI enterography and we ordered stool test with inflammatory bowel disease panel. He had positive IBD panel. He had 5 out of 5 positives. Therefore we put him on budesonide 9 mg/day. He said is the best that he has felt in a long time. We were able to titrate him down to 6 mg a day. We will get him on Stelara therapy and get a capsule endoscopy so we can titrate the budesonide to off. IBD Expanded Pr ALCA 121 H 0-60 units Negative:<55 Equivocal: 55-60 Positive: >60 Louie 61 H 0-50 units Negative: <45 Equivocal: 45-50 Positive: >50 AMCA 141 H 0-100 units Negative: <90 Equivocal: 90-100 Positive: >100 This test was developed and its performance characteristics determined by [facility]. It has not been cleared or approved by the Food and Drug Administration. The FDA has determined that such clearance or approval is not necessary. ACCA 94 H 0-90 units Negative: <80 Equivocal: 80-90 Positive: >90 Atypical pANCA Negative Negative COMMENT Comment H . Suggestive of Crohn's Disease with the very high risk of aggressive disease behavior (development of strictures or fistulae) I have examined the patient and the H&P has been reviewed. There are no clinical changes since date of exam. Good
--- NOTE | 2024-03-11 13:05 | OP.COLON_ITS ---
Patient Name: José Miguel Jennings Procedure Date: 03/11/2024 12:42 PM Date of : 1995 Age: 29 Procedure: Colonoscopy Indications: Crohn's disease of the small bowel Providers: Bradley Arriaga DO Medicines: Monitored Anesthesia Care Patient Profile: This is a 29 year old male. Refer to note in patient chart for documentation of history and physical. Last Colonoscopy: within the past 3 years. Complications: No immediate complications. Procedure: Pre-Anesthesia Assessment: - Prior to the procedure, a History and Physical was performed, and patient medications and allergies were reviewed. The patient is competent. The risks and benefits of the procedure and the sedation options and risks were discussed with the patient. All questions were answered and informed consent was obtained. Patient identification and proposed procedure were verified by the physician in the pre-procedure area. Mental Status Examination: alert and oriented. Airway Examination: normal oropharyngeal airway and neck mobility. Respiratory Examination: clear to auscultation. CV Examination: normal. Prophylactic Antibiotics: The patient does not require prophylactic antibiotics. Prior Anticoagulants: The patient has taken no anticoagulant or antiplatelet agents except for NSAID medication. ASA Grade Assessment: II - A patient with mild systemic disease. After reviewing the risks and benefits, the patient was deemed in satisfactory condition to undergo the procedure. The anesthesia plan was to use monitored anesthesia care (MAC). Immediately prior to administration of medications, the patient was re-assessed for adequacy to receive sedatives. The heart rate, respiratory rate, oxygen saturations, blood pressure, adequacy of pulmonary ventilation, and response to care were monitored throughout the procedure. The physical status of the patient was re-assessed after the procedure. After I obtained informed consent, the scope was passed under direct vision. Throughout the procedure, the patient's blood pressure, pulse, and oxygen saturations were monitored continuously. The colonoscope was introduced through the anus and advanced to the cecum, identified by appendiceal orifice and ileocecal valve. The colonoscopy was performed without difficulty. The patient tolerated the procedure well. The quality of the bowel preparation was good. Scope In: 12:49:03 PM Scope Out: 12:59:19 PM Total Procedure Duration Time 0 hours 10 minutes 16 seconds Findings: The perianal and digital rectal examinations were normal. No other significant abnormalities were identified in a careful examination of the remainder of the colon. Patchy inflammation characterized by erythema and target ulcerations was found in the terminal ileum. The inflammation was mild in severity. Biopsies were taken with a cold forceps for histology. Verification of patient identification for the specimen was done. Estimated blood loss was minimal. Impression: - Ileitis. Inflammation was found. This was mild in severity. Biopsied. Recommendation: - Discharge patient to home. - Resume previous diet. - Continue present medications. - Await pathology results. - Repeat colonoscopy for surveillance based on pathology results. Procedure Code(s): --- Professional --- 33801, Colonoscopy, flexible; with biopsy, single or multiple CPT copyright 2021 [employer]. All rights reserved. The codes documented in this report are preliminary and upon clinical coder review may be revised to meet current compliance requirements. Bradley Arriaga DO 03/11/2024 1:04:36 PM This report has been signed electronically. Number of Addenda: 0 Note Initiated On: 03/11/2024 12:42 PM
--- NOTE | 2024-03-11 13:05 | OP.CCLET_ITS ---
03/11/2024 Tuan Chowdhury Do Re : Colonoscopy procedure for José Miguel Jennings Dear Luciana This procedure was performed on Monday, March 11, 2024. My impressions and recommendations are as follows: Impressions : - Ileitis. Inflammation was found. This was mild in severity. Biopsied. Recommendations : - Discharge patient to home. - Resume previous diet. - Continue present medications. - Await pathology results. - Repeat colonoscopy for surveillance based on pathology results. My findings are described in the full procedure note, which is enclosed. If I can be of further assistance, please feel free to contact me at . Sincerely, Bradley Arriaga, 03/11/2024 1:04:36 PM This report has been signed electronically.
--- NOTE | 2024-03-11 13:09 | PCM.POST.ANE ---
Anesthesia: Postop Eval I Current Vital Signs Temperature: 97.5 F Pulse Rate: 67 Blood Pressure: 107/52 Respiratory Rate: 16 Pulse Ox: 97 Oxygen Delivery Method: Room Air Assessment Airway patent: Yes Spontaneous unlabored respirations: Yes Mental status: Asleep nausea: No Vomiting: No Anesthesia Complication: No Fluid Hydration Crystalloid volume administer (ml): 600 Total IV fluid infused: 600 Progress Note Anesthesia document: Postop Eval 1 completed: Yes
--- NOTE | 2024-03-11 16:38 | PCM.POSTANE2 ---
Anesthesia Postop Eval I Sum Postop Eval Completion status Anesthesia document: Postop Eval 1 completed: Yes Anesthesia Postop Eval I Summary Anesthesia Postop Eval I Summary: Anesthesia Postop Eval I: Assessment Summary Airway patent Yes 03/11/24 13:09 [email or web address] Spontaneous unlabored Yes 03/11/24 13:09 [email or web address] respirations Mental status Asleep 03/11/24 13:09 [email or web address] nausea No 03/11/24 13:09 [email or web address] Vomiting No 03/11/24 13:09 [email or web address] Anesthesia Postop Eval I: Fluid Summary Crystalloid volume administer 600 03/11/24 13:09 [email or web address] (ml) Colloids volume administered ( ml) Blood Product volume administered (ml) Total IV fluid infused 600 03/11/24 13:09 [email or web address] Anesthesia Postop Eval I: Summary Notes Anesthesia Complication No 03/11/24 13:09 [email or web address] Anesthesia Complication Comment: Post-operative progress note Anesthesia: Postop Eval II Evaluation Mental status: Awake and Calm Pain Level: 0 nausea: No Vomiting: No Complications Anesthesia Complication: No
== END 2024-03-11 13:15 | disposition home or self-care (01) ==
LOC: EN 10:46 → AC 10:46
PROVIDERS: PCP Student in an Organized Health Care Education/Training Program; Referring Provider Student in an Organized Health Care Education/Training Program; Visit Provider Internal Medicine Gastroenterology
PROC: 0DJD8ZZ Inspection of Lower Intestinal Tract, Via Natural or Artificial Opening Endoscopic (ICD-10-PCS; CPT 45378; principal; 2024-03-11 11:55)
DX: K20.0 Eosinophilic esophagitis (principal); K21.9 Gastro-esophageal reflux disease without esophagitis; R10.11 Right upper quadrant pain; Z79.899 Other long term (current) drug therapy; K52.9 Noninfective gastroenteritis and colitis, unspecified
CPT/HCPCS: 45380; 88305; 88341; 88342; J7120; J2405

== ENCOUNTER 2024-10-08 05:16 | Day surgery (SDC) | payer OTHER, SELFPAY ==
[2024-10-08] VITALS (11 sets, daily range): BP systolic 99–110; BP diastolic 51–64; PULSE 58–71; RESP 16–18; TEMP 36.3–36.9; O2SAT 95–99; BMI 30.8
[2024-10-08] MEDS: Lactated Ringers 1,000 ML 15 ML IV (06:03)
--- NOTE | 2024-10-08 06:30 | EGD_PTH ---
PATIENT: KELVIN GARCIA LOC: EN U#:[id number] AGE/SX: 29/M ROOM: RE10/08/[address]: Dr. Bradley Arriaga DO : 1995 BED: DIS: 10/08/2024 SPEC #: [id number] RECD: 10/08/24 12:12 STATUS: GLYNN REMaria Ines #: [id number] MAYLIN: 10/08/24 06:[address]: Bradley Arriaga DEPT: SURGICAL PATHOLOGY RECD BY: Mikhail Cedeño ENTERED: 10/08/24 13:59 SP TYPE: EGD BIOPSY BASILIO DR: Dr. Tuan Chowdhury DO Tissues: A - Esophagus, NOS Procedures: Special Stain Group I Surgery Specimen Level IV GMS Stain (control) HEADER OPERATION: EGD and biopsy PRE-OP DIAGNOSIS: Eosinophilic esophagitis, Crohn's disease TISSUE SUBMITTED: A- Random esophagus biopsy MICROSCOPIC DIAGNOSIS A. Esophagus, random, biopsy: * Benign squamous epithelium with areas of acute and chronic inflammation, including increased eosinophils (See note) Note: The eosinophils are increased 0-20/HPF. The findings are not specific and may be seen in GERD, infections, medication-induced and eosinophilic esophagitis. A PAS stain is negative MICROSCOPIC DESCRIPTION Slides are reviewed. All matched controls reacted appropriately. These tests were developed and their performance characteristics determined by [facility]. They may not have been cleared or approved by the U.S. Food and Drug Administration. The FDA has determined that such clearance or approval is not necessary. The above immunohistochemical/dualISH markers are ordered and reviewed by the Pathologist. GROSS DESCRIPTION A. Received in formalin in a container labeled with the patient's name, date of , and random esophagus biopsy are multiple cervantes-pink fragments of mucosal tissue measuring 1.7 x 0.5 x 0.3 cm in aggregate. Submitted in toto in A1. [facility] 10-08-2024 CPT:34001,92307
--- NOTE | 2024-10-08 06:44 | PRE.ANES_ITS ---
ASA Classification* ASA Classification ASA Classification: 2 Assessment & Plan Anesthesia* Anesthesia Assessment Anesthesia Assessment: Discussed sedation and/or anesthesia options, risks, benefits, and alternatives with patient/parents/legal guardian/POA. Questions invited. The patient/parents/legal guardian/POA seems to understand and agrees to proceed with anesthesia plan. Reviewed the physical assessment, medical history, allergy history and patient home medications list prior to surgery/procedure/anesthetic and documented any changes. Performed airway and anesthesia risk assessments. Anesthesia Type Anesthesia Type: MAC Anesthesia Focused Assessment* Temperature: 98.4 F Pulse Rate: 64 Blood Pressure: 110/60 Respiratory Rate: 18 Pulse Ox: 99 Airway Assessment Mouth opens: >3 cm Mallampati Score: II Focused Labs Anesthesia Preop lab: CBC WBC 8.4 K/mm3 (4.4-11.0) 10/26/22 15:10/26/22 RBC 5.65 M/mm3 (4.6-6.2) 10/26/22 15:10/26/22 Hgb 16.5 g/dL (13.0-16.5) 10/26/22 15:27 10/26/22 Hct 49.8 % (40-54) 10/26/22 15:10/26/22 Plt Count 287 K/mm3 (150-450) 10/26/22 15:27 10/26/22 CHEMISTRY Potassium 3.8 mmol/L (3.5-5.1) 10/26/22 15:27 10/26/22 Sodium 140 mmol/L (136-145) 10/26/22 15:10/26/22 BUN 14 mg/dL (7-18) 10/26/22 15:27 10/26/22 Creatinine 0.91 mg/dL (0.70-1.30) 10/26/22 15:10/26/22 Glucose 79 mg/dL (74-106) 10/26/22 15:27 10/26/22 TSH 0.62 uIU/mL (0.358-3.74) 09/13/23 16:33 COAG Pre-Assessment Diagnosis/Proposed Procedure Planned Operative Procedure(s): EGD Anesthesia History 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 When Was Last Pacemaker Check QUESTION #4 FULL TEXT: You/Your Family Experience fever (hyperthermia) with Anesthesia Last Oral Intake Last Oral intake: Last Oral Intake NPO since 22:30 10/08/24 05:55 Meds taken in AM with sips of water? Meds patient instructed to take am of surgery PONV PONV - hydrogen plant operations manager: PONV - hydrogen plant operations manager Female No 10/06/24 14:04 HX of Motion Sickness No 10/06/24 14:04 HX of N/V After Surgery No 10/06/24 14:04 Non-Smoker No 10/06/24 14:04 Duration of Surgery greater No 10/06/24 14:04 than 60 minutes Number of Risk Factors PONV Score Height & Weight Height & Weight: Anesthesia: Height & Weight Height 5 ft 11 in 10/08/24 05:55 Weight: 100.3 kg 10/08/24 05:55 Body Mass Index (BMI) 30.8 10/08/24 05:55 Respiratory Assessment Respiratory Assessment - hydrogen plant operations manager: Respiratory Tract Infection Hx - hydrogen plant operations manager Hx Respiratory Tract Infection No 10/06/24 14:04 STOP Sleep Apnea STOP Sleep Apnea - hydrogen plant operations manager: STOP Sleep Apnea - hydrogen plant operations manager Hx Hypertension No 10/06/24 14:04 Hx Sleep Apnea No 10/06/24 14:04 CPAP No 03/10/24 13:39 BIPAP No 03/10/24 13:39 Do you snore loudly (louder No 10/06/24 14:04 than talking or can be heard Do you often feel tired/ No 10/06/24 14:04 fatigued/ sleepy during daytime? Has anyone observed you stop No 10/06/24 14:04 breathing during sleep? STOP Results Negative 10/06/24 14:04 QUESTION #5 FULL TEXT : Do you snore loudly (louder than talking or can be heard through closed doors)? 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 Specify any problems Hx of Preganancy in last 3 N/A 10/06/24 14:04 Months Nurse Filling Out Transfusion EHHUMBLE 10/06/24 14:04 & Questions: Date: 10/06/24 10/06/24 14:04 Time: 14:06 10/06/24 14:04 Patient unable to answer at this time (ie. confused, unrespo /Reproduction History /Reproductive History - hydrogen plant operations manager: /Reproductive Hx- hydrogen plant operations manager Hx Now Gestational Age (in weeks): EDC: Hx Hx Para Hx Section SAB Active Medications Active Medications: Current Medications Generic Name Dose Route Start Last Admin Trade Name Freq PRN Reason Stop Dose Admin Lactated Ringer's 1,000 mls @ 15 mls/hr 10/08/24 05:45 10/08/24 06:03 IV 15 mls/hr .Q48H EARNEST Administration PFSH Medical History Anxiety Migraine headache History of hiatal hernia Gastric reflux Chewing tobacco use Abdominal pain Abdominal pain Home Medications ?Medication ?Instructions ?Recorded ?Last Taken ?Type dupilumab 300 mg/2 mL subcutaneous 300 mg (2 mL) subcu t QWEEK EOE #8 10/26/22 09/30/24 Rx pen injector (Dupixent) mL pantoprazole 40 mg tablet,delayed 40 mg PO PRN 4 Unknown History release ustekinumab 90 mg/mL subcutaneous 90 mg subcut Q8W #1 mL 08/28/24 09/19/24 Rx syringe (Stelara) Allergy/AdvReac Type Severity Reaction Status Date / Time No Known Allergies Allergy Verified 10/08/24 05:54 Surgical History History of esophagogastroduodenoscopy (EGD) History of shoulder surgery Hx of tonsillectomy Social History Smoking Status: Current every day smoker tobacco type: smokeless tobacco alcohol intake: never substance use type: does not use Review of Systems (Anesthesia) ROS Narrative System reviewed and no additional complaints, except as documented.
--- NOTE | 2024-10-08 06:44 | PCM.HP.STD ---
HPI - General General Date of Admission: 10/08/24 Date of Service: 10/08/24 Chief Complaint: crohns HPI Narrative KELVIN GARCIA, is a 29 M who presentsCOLTON JOSE, is a 29 M who presents to the office today for f/u. [facility] established 2022 with nausea/vomiting, acid reflux, and trouble swallowing. Diagnosed with EOE. EGD .10.01; - LA Grade D reflux esophagitis. Biopsied. Path with increased eosinophils - Medium-sized hiatal hernia. - Normal first portion of the duodenum. *started on Dupixent for EOE Colonoscopy 03.11.24; - Ileitis. Inflammation was found. This was mild in severity. Biopsied. Biochemical work up; IBD panel indicating aggressive Crohns MRE; Low signal intensity material layering in the gallbladder may be due to stones or sludge. No signs of acute cholecystitis. Normal bowel. OV 08.07.24 Pt has not been feeling over the past month. He is having blood in his stool again. He was able to get the infusions of Stelara but never received the injections. He had the infusions back in April 2024. After the infusions, he did feel better. He has had about a 30 lbs weight loss since November 2023. He has had some changes in his diet but is not trying to lose weight. He is having issues with swallowing bread and pizza. Swallowing has been worse over the past few months. He denies abd pain, n/v, constipation, diarrhea or melena. [facility] Medical History Anxiety Migraine headache History of hiatal hernia Gastric reflux Chewing tobacco use Abdominal pain Abdominal pain Home Medications ?Medication ?Instructions ?Recorded ?Last Taken ?Type dupilumab 300 mg/2 mL subcutaneous 300 mg (2 mL) subcut QWEEK EOE #8 10/26/22 09/30/24 Rx pen injector (Dupixent) mL pantoprazole 40 mg tablet,delayed 40 mg PO PRN 03/10/24 Unknown History release ustekinumab 90 mg/mL subcutaneous 90 mg subcut Q8W #1 mL 08/28/24 09/19/24 Rx syringe (Stelara) Allergy/AdvReac Type Severity Reaction Status Date / Time No Known Allergies Allergy Verified 10/08/24 05:54 Surgical History History of esophagogastroduodenoscopy (EGD) History of shoulder surgery Hx of tonsillectomy Social History Smoking Status: Current every day smoker tobacco type: smokeless tobacco alcohol intake: never substance use type: does not use ROS Constitutional Constitutional: Denies fatigue, fever(s), poor appetite, weight gain or weight loss Gastrointestinal Gastrointestinal: Denies belching, bloating, change in bowel habits, change in stool character, chewing difficulty, coffee ground emesis, constipation, cramping, diarrhea, dyspepsia, dysphagia, early satiety, excessive flatus, fecal incontinence, heartburn, hematemesis, hematochezia, hemorrhoids, loose stools, melena, nausea, odynophagia, rectal bleeding, tenesmus, vomiting or weight changes Vital Signs Vital Signs Vital Signs: 10/08/24 05:55 10/08/24 05:55 Temperature 98.4 F Temperature Source Temporal Pulse Rate 64 Respiratory Rate 18 Respiratory Pattern Normal Blood Pressure 110/60 Blood Pressure Mean 76 Blood Pressure Source Monitor Blood Pressure Position Semi-Fowlers Blood Pressure Location Left Arm Pulse Ox 99 Oxygen Delivery Method Room Air Weight Weight: 221 lb 1.978 oz Body Mass Index (BMI) 30.8 Assessment & Plan Assessment/Plan (1) Crohn disease: (2) Diarrhea: (3) Eosinophilic esophagitis: (4) GERD (gastroesophageal reflux disease): PLAN: Assessment and Plan Assessment and Plan (1) Crohn disease: Status: Acute (2) Eosinophilic esophagitis: Status: Chronic Plan: Pt is a 29 yo male pt here today for f/u regarding EOE and Crohns disease. Pt has continues on Dupixent and Pantoprazole for EOE but has had some worsening dysphagia over the past few months. He has not had an EGD since 2022. He will be scheduled for an EGD due to worsening symptoms while on treatment. He is agreeable to this. Regarding his Crohns, pt was started on Stelara by Dr. Arriaga back in Apr 2024 due to diarrhea, IBD panel indicating aggressive Crohns and elevated CRP. He was able to get the infusions but was never sent the injections. He did feel better after the infusions. Will order stool testing and updated blood work. Will attempt to get him started on the Stelara. -CBC, CMP, ESR and CRP -Calprotectin -Continue Dupixent and PPI -EGD -Consdier colonoscopy Orders: Orders Erythrocyte Sed Rate Today K50.90 - Crohn's disease, unspecified, without complications CRP Today K50.90 - Crohn's disease, unspecified, without complications CBC W/Diff, Automated Today K50.90 - Crohn's disease, unspecified, without complications Comprehensive Metabolic Profil Today K50.90 - Crohn's disease, unspecified, without complications Calprotectin, Stool Today K50.90 - Crohn's disease, unspecified, without complications
--- NOTE | 2024-10-08 07:06 | OP.EGD_ITS ---
Patient Name: José Miguel Jennings Procedure Date: 10/08/2024 6:34 AM Date of : 1995 Age: 29 Procedure: Upper GI endoscopy Indications: Dysphagia, Heartburn Providers: Bradley Arriaga DO Referring MD: Tuan Chowdhury Do Medicines: Monitored Anesthesia Care Patient Profile: This is a 29 year old male. Refer to note in patient chart for documentation of history and physical. Patient has symptoms of chronic dysphagia and dysphagia with solids. Complications: No immediate complications. Procedure: Pre-Anesthesia Assessment: - Prior to the procedure, a History and Physical was performed, and patient medications and allergies were reviewed. The patient is competent. The risks and benefits of the procedure and the sedation options and risks were discussed with the patient. All questions were answered and informed consent was obtained. Patient identification and proposed procedure were verified by the physician in the pre-procedure area. Mental Status Examination: alert and oriented. Airway Examination: normal oropharyngeal airway and neck mobility. Respiratory Examination: clear to auscultation. CV Examination: normal. Prophylactic Antibiotics: The patient does not require prophylactic antibiotics. Prior Anticoagulants: The patient has taken no anticoagulant or antiplatelet agents except for NSAID medication. ASA Grade Assessment: II - A patient with mild systemic disease. After reviewing the risks and benefits, the patient was deemed in satisfactory condition to undergo the procedure. The anesthesia plan was to use monitored anesthesia care (MAC). Immediately prior to administration of medications, the patient was re-assessed for adequacy to receive sedatives. The heart rate, respiratory rate, oxygen saturations, blood pressure, adequacy of pulmonary ventilation, and response to care were monitored throughout the procedure. The physical status of the patient was re-assessed after the procedure. After obtaining informed consent, the endoscope was passed under direct vision. Throughout the procedure, the patient's blood pressure, pulse, and oxygen saturations were monitored continuously. The Endoscope was introduced through the mouth, and advanced to the duodenal bulb. The upper GI endoscopy was accomplished without difficulty. The patient tolerated the procedure well. Scope In: 6:55:22 AM Scope Out: 6:57:51 AM Total Procedure Duration Time 0 hours 2 minutes 29 seconds Findings: Mucosal changes including ringed esophagus, feline appearance, longitudinal furrows, small-caliber esophagus, white plaques, circumferential folds, congestion (edema) and crepe paper esophagus were found in the entire esophagus. Esophageal findings were graded using the Eosinophilic Esophagitis Endoscopic Reference Score (EoE-EREFS) as: Edema Grade 0 Normal (distinct vascular markings), Rings Grade 2 Moderate (distinct rings that do not occlude passage of diagnostic 8-10 mm endoscope), Exudates Grade 1 Mild (scattered white lesions involving less than 10 percent of the esophageal surface area), Furrows Grade 1 Mild (vertical lines without visible depth) and Stricture none (no stricture found). Biopsies were obtained from the proximal and distal esophagus with cold forceps for histology of suspected eosinophilic esophagitis. Verification of patient identification for the specimen was done. Estimated blood loss was minimal. A hiatal hernia was present. Suspect gastroparesis due to retained gastric contents. No gross lesions were noted in the duodenal bulb. Impression: - Esophageal mucosal changes secondary to eosinophilic esophagitis. - Hiatal hernia. - Gastroparesis. - No gross lesions in the duodenal bulb. - Biopsies were taken with a cold forceps for evaluation of eosinophilic esophagitis. Recommendation: - Discharge patient to home. - Resume previous diet. - Continue present medications. - Await pathology results. Procedure Code(s): --- Professional --- 46296, Esophagogastroduodenoscopy, flexible, transoral; with biopsy, single or multiple CPT copyright 2021 [employer]. All rights reserved. The codes documented in this report are preliminary and upon safety grooving machine operator review may be revised to meet current compliance requirements. Bradley Arriaga DO 10/08/2024 7:05:19 AM This report has been signed electronically. Number of Addenda: 0 Note Initiated On: 10/08/2024 6:34 AM
--- NOTE | 2024-10-08 07:06 | OP.CCLET_ITS ---
10/08/2024 Tuan Chowdhury Do Re : Upper GI endoscopy procedure for José Miguel Jennings Dear Luciana This procedure was performed on Tuesday, October 08, 2024. My impressions and recommendations are as follows: Impressions : - Esophageal mucosal changes secondary to eosinophilic esophagitis. - Hiatal hernia. - Gastroparesis. - No gross lesions in the duodenal bulb. - Biopsies were taken with a cold forceps for evaluation of eosinophilic esophagitis. Recommendations : - Discharge patient to home. - Resume previous diet. - Continue present medications. - Await pathology results. My findings are described in the full procedure note, which is enclosed. If I can be of further assistance, please feel free to contact me at . Sincerely, Bradley Arriaga DO 10/08/2024 7:05:19 AM This report has been signed electronically.
--- NOTE | 2024-10-08 07:06 | PCM.POST.ANE ---
Anesthesia: Postop Eval I Current Vital Signs Temperature: 97.5 F Pulse Rate: 71 Blood Pressure: 107/64 Respiratory Rate: 16 Pulse Ox: 98 Oxygen Delivery Method: Room Air Assessment Airway patent: Yes Spontaneous unlabored respirations: Yes Mental status: Awake and Calm nausea: No Vomiting: No Anesthesia Complication: No Fluid Hydration Crystalloid volume administer (ml): 300 Total IV fluid infused: 300 Progress Note Anesthesia document: Postop Eval 1 completed: Yes
--- NOTE | 2024-10-08 08:36 | PCM.POSTANE2 ---
Anesthesia Postop Eval I Sum Postop Eval Completion status Anesthesia document: Postop Eval 1 completed: Yes Anesthesia Postop Eval I Summary Anesthesia Postop Eval I Summary: Anesthesia Postop Eval I: Assessment Summary Airway patent Yes 10/08/24 07:07 [email or web address] Spontaneous unlabored Yes 10/08/24 07:07 [email or web address] respirations Mental status Awake,Calm 10/08/24 07:07 [email or web address] nausea No 10/08/24 07:07 [email or web address] Vomiting No 10/08/24 07:07 [email or web address] Anesthesia Postop Eval I: Fluid Summary Crystalloid volume administer 300 10/08/24 07:07 [email or web address] (ml) Colloids volume administered ( ml) Blood Product volume administered (ml) Total IV fluid infused 300 10/08/24 07:07 [email or web address] Anesthesia Postop Eval I: Summary Notes Anesthesia Complication No 10/08/24 07:07 [email or web address] Anesthesia Complication Comment: Post-operative progress note Anesthesia: Postop Eval II Evaluation Mental status: Awake Pain Level: 0 nausea: No Vomiting: No
== END 2024-10-08 08:02 | disposition home or self-care (01) ==
LOC: EN 05:16 → AC 05:18
PROVIDERS: PCP Student in an Organized Health Care Education/Training Program; Referring Provider Student in an Organized Health Care Education/Training Program; Visit Provider Internal Medicine Gastroenterology
PROC: 0DJ08ZZ Inspection of Upper Intestinal Tract, Via Natural or Artificial Opening Endoscopic (ICD-10-PCS; CPT 43235; principal; 2024-10-08 06:25)
DX: K20.0 Eosinophilic esophagitis (principal); K50.90 Crohn's disease, unspecified, without complications; K44.9 Diaphragmatic hernia without obstruction or gangrene; K31.84 Gastroparesis; K21.9 Gastro-esophageal reflux disease without esophagitis; F17.220 Nicotine dependence, chewing tobacco, uncomplicated; Z79.620 Long term (current) use of immunosuppressive biologic
CPT/HCPCS: 43239; 88305; 88312; J2405